=== PATIENT | male | born 1955 | race African-American/Black ===

== ENCOUNTER 2019-05-04 06:21 | Emergency (ER) | payer OTHER ==
[~2019-05-04] VITALS: Ht 182.9 cm; Wt 91.2 kg
[~2019-05-04 06:21] MED LIST: ASPIR-LOW81 MG PO; BRIMONIDINE TAR1 BO1 OP; DENIES ANY MEDS; FLEXERIL PO; KETOCONAZOLE60 GM TP; LORTAB 5 MG/5001 TAB PO; MEDROL DOSPAK21 TAB PO; PEPCID20 MG PO; PRED FORTE 1% EY5 M1 OP; PREDNISONE 10 M10 MG PO; QUINU10 PD PO
[2019-05-04 06:26] VITALS: BP 167/84
== END 2019-05-04 06:56 | disposition home or self-care (01) ==
LOC: ER 06:21
DX: L23.7 Allergic contact dermatitis due to plants, except food (principal); I10 Essential (primary) hypertension

== ENCOUNTER 2019-12-22 07:53 | Emergency (ER) | payer OTHER ==
[~2019-12-22] VITALS: Ht 185.4 cm; Wt 95.3 kg
[2019-12-22 07:54] VITALS: BP 137/72
[2019-12-22] MEDS ORDERED: TAMSULOSIN HCL0.4 MG PO (07:58)
[2019-12-22] MEDS ORDERED: QUINAPRIL-HCTZ1 EAC2 PO (07:58)
[2019-12-22] MEDS ORDERED: KETOCONAZOLE120 ML TOP (07:58)
[2019-12-22] MEDS ORDERED: ATORVASTATIN CA20 MG PO (07:58)
[2019-12-22] MEDS ORDERED: KEFLEX500 M2 PO (08:35)
== END 2019-12-22 08:41 | disposition home or self-care (01) ==
LOC: ER 07:53
DX: L01.00 Impetigo, unspecified (principal); I10 Essential (primary) hypertension; Z86.19 Personal history of other infectious and parasitic diseases